=== PATIENT | female | born 1985 ===

== ENCOUNTER 2019-04-25 08:20 | Day surgery (SDC) | payer OTHER ==
[~2019-04-25 08:20] MED LIST: VITAMIN D31000 UNI1 PO
[2019-04-25] MEDS ORDERED: COLACE100 MG PO (12:51)
[2019-04-25] MEDS ORDERED: PERCOCET 5-3251 EACH PO (12:51)
== END 2019-04-25 20:05 | disposition home or self-care (01) ==
LOC: CIR.AMB 08:20
DX: K64.5 Perianal venous thrombosis (principal); K64.4 Residual hemorrhoidal skin tags